=== PATIENT | female | born 1990 | race Caucasian/White ===

== ENCOUNTER 2017-10-27 17:54 | Emergency (ER) | payer SELFPAY ==
[2017-10-27 18:00] VITALS: BP 143/91
--- NOTE | 2017-10-27 18:22 | ER Report ---
History and Physical Time Seen By MD: 18:00 Hx. of Stated Complaint: PATIENT REPORTS LEFT SIDED FLANK/ABDOMINAL PAIN THAT STARTED AROUND AN HOUR AGO HPI/ROS CHIEF COMPLAINT: Left-sided flank pain HISTORY OF PRESENT ILLNESS: Patient is a 27-year-old female who presents to the emergency department with just over 60 minutes of sudden onset severe 10 out of 10 left-sided flank pain with radiation to the groin. Pain was very intense and instantaneous onset. She denies fevers or chills she does report nausea without vomiting. She denies any diarrhea. Patient does have a past medical history for urinary tract infections as well as pyelonephritis in the past. She does state the pain did feel somewhat similar. She gave a urine sample in the emergency department and now states that the pain is less than 2 out of 10 in intensity and she feels much improved. She states that if her pain was the weight is now she would not of come to the emergency department. REVIEW OF SYSTEMS: Respiratory: No cough, no dyspnea. Cardiovascular: No chest pain, no palpitations. Gastrointestinal: Nausea, left-sided flank pain Musculoskeletal: No back pain. Allergies: Coded Allergies: No Known Drug Allergies (Unverified , 10/27/17) Home Meds Active Scripts Cephalexin (KEFLEX) 500 Mg Capsule, 500 MG PO Q12H, #10 CAP 0 Refills TAKE ONE CAPSULE BY MOUTH EVERY SIX HOURS Prov:DARWIN CHAMPAGNE MD 10/27/17 Past Medical/Surgical History History of pyelonephritis Hx Alcohol Use: Yes (OCCASIONAL) Constitutional Vital Sign - Last 24 Hours 10/27/17 18:00 Temp 98.4 Pulse 87 Resp 20 B/P (MAP) 143/91 Physical Exam General Appearance: The patient is alert, has no immediate need for airway protection and no current signs of toxicity. Eyes: Pupils equal and round no injection. Respiratory: Chest is non tender, lungs are clear to auscultation. Cardiac: regular rate and rhythm [ ] Gastrointestinal: Abdomen is soft and non tender, no masses, bowel sounds normal. Musculoskeletal: Neck: Neck is supple and non tender. Extremities have full range of motion and are non tender. Skin: No rashes or lesions. Medical Decision Making Data Points Laboratory Hematology Test 10/27/17 17:59 Urine Color Yellow Urine Clarity Slightly-cloudy Urine pH 5.0 pH (4.8-9.5) Urine Specific [place] 1.021 Urine Protein Negative mg/dL (NEGATIVE) Urine Glucose (UA) Negative mg/dL (NEGATIVE) Urine Ketones Negative mg/dL (NEGATIVE) Urine Blood Moderate (NEGATIVE) Urine Nitrite Negative (NEGATIVE) Urine Bilirubin Negative (NEGATIVE) Urine Urobilinogen Negative mg/dL (0.2-1.9) Urine Leukocyte Esterase Negative (NEGATIVE) Urine RBC 7 /HPF (0-2/HPF) Urine WBC 1 /HPF (0-5/HPF) Urine Squamous Epithelial Cells Many /LPF (</=FEW) Urine Bacteria Few /HPF (NONE-FEW) Urine Mucus None /HPF (NONE-FEW) Urine HCG, Qualitative Negative (NEGATIVE) Chemistry Test 10/27/17 17:59 Urine Color Yellow Urine Clarity Slightly-cloudy Urine pH 5.0 pH (4.8-9.5) Urine Specific [place] 1.021 Urine Protein Negative mg/dL (NEGATIVE) Urine Glucose (UA) Negative mg/dL (NEGATIVE) Urine Ketones Negative mg/dL (NEGATIVE) Urine Blood Moderate (NEGATIVE) Urine Nitrite Negative (NEGATIVE) Urine Bilirubin Negative (NEGATIVE) Urine Urobilinogen Negative mg/dL (0.2-1.9) Urine Leukocyte Esterase Negative (NEGATIVE) Urine RBC 7 /HPF (0-2/HPF) Urine WBC 1 /HPF (0-5/HPF) Urine Squamous Epithelial Cells Many /LPF (</=FEW) Urine Bacteria Few /HPF (NONE-FEW) Urine Mucus None /HPF (NONE-FEW) Urine HCG, Qualitative Negative (NEGATIVE) Urinalysis Test 10/27/17 17:59 Urine Color Yellow Urine Clarity Slightly-cloudy Urine pH 5.0 pH (4.8-9.5) Urine Specific [place] 1.021 Urine Protein Negative mg/dL (NEGATIVE) Urine Glucose (UA) Negative mg/dL (NEGATIVE) Urine Ketones Negative mg/dL (NEGATIVE) Urine Blood Moderate (NEGATIVE) Urine Nitrite Negative (NEGATIVE) Urine Bilirubin Negative (NEGATIVE) Urine Urobilinogen Negative mg/dL (0.2-1.9) Urine Leukocyte Esterase Negative (NEGATIVE) Urine RBC 7 /HPF (0-2/HPF) Urine WBC 1 /HPF (0-5/HPF) Urine Squamous Epithelial Cells Many /LPF (</=FEW) Urine Bacteria Few /HPF (NONE-FEW) Urine Mucus None /HPF (NONE-FEW) Urine HCG, Qualitative Negative (NEGATIVE) ED Course/Re-evaluation ED Course 10/27/2017 6:21:54 pm patient will left-sided flank pain. Bedside ultrasound was performed which showed normal kidney without hydronephrosis. Patient remains comfortable at this time. Plan will be urinalysis and test. Disposition pending ED course Decision to Disposition Date: Oct 27, 2017 Decision to Disposition Time: 18:40 Depart Departure Latest Vital Signs Vital Signs Date Time Temp Pulse Resp B/P (MAP) Pulse Ox O2 Delivery O2 Flow Rate FiO2 10/27/17 18:00 98.4 87 20 143/91 Impression: Primary Impression: Flank pain, acute Condition: Improved Disposition: HOME OR SELF-CARE New Scripts Cephalexin (KEFLEX) 500 Mg Capsule 500 MG PO Q12H, #10 CAP 0 Refills TAKE ONE CAPSULE BY MOUTH EVERY SIX HOURS Prov: DARWIN CHAMPAGNE MD 10/27/17 Patient Instructions: Flank Pain (ED) Additional Instructions: Return to the emergency department if your symptoms return and/or worsen. You were given a handwritten prescription for Keflex in case the urine culture shows evidence of infection we will call you until you to fill the prescription and take as directed. Take Motrin and Tylenol as directed for pain. DARWIN CHAMPAGNE MD Oct 27, 2017 18:22
[2017-10-27] MEDS ORDERED: CEPH-13 PO (18:32)
== END 2017-10-27 18:39 | disposition home or self-care (01) ==
LOC: ER 18:10
DX: R10.30 Lower abdominal pain, unspecified (principal)
CPT/HCPCS: 81001; 81025; 87088; 99282